=== PATIENT | female | born 1965 | race Caucasian/White ===

== ENCOUNTER → 2018-03-28 | Day surgery (SDC) | payer BC ==
[~2018-03-28] MED LIST: Lactated Ringers 1,000 ML IV SCH; Propofol 200 MG/20 ML SDV IV ONE
--- NOTE | 2018-03-31 11:02 | OR ---
DATE OF OPERATION: 03/28/2018 PREOPERATIVE DIAGNOSIS: SCREENING COLONOSCOPY. POSTOPERATIVE DIAGNOSIS: SCREENING COLONOSCOPY. SURGEON: Flash Monk MD PROCEDURE: FULL-LENGTH COLONOSCOPY. ANESTHESIA: LEATHER LACER due to morbid obesity. COMPLICATIONS: None. SPECIMEN: None. FINDINGS: Normal full-length colonoscopy. RECOMMENDATIONS: Follow up colonoscopy every 10 years. INDICATIONS: The patient was in to see her primary provider. She is at the age for a screening colonoscopy. DESCRIPTION OF PROCEDURE: The patient was prepped and draped, placed in the left lateral decubitus position. A lubricated Olympus colonoscope was inserted and was easily advanced to the cecum. We were able to directly visualize the ileocecal valve and the appendiceal orifice. The bowel prep was marginal. Most of the stool present could be irrigated and suctioned, very few areas were unable to be. It was possible some smaller lesions may have been missed. Due to this, upon withdrawal throughout the entire length of the colon, I could find no signs of any polyps, masses, ulcerations, or bleeding sites. No vascular abnormalities or signs of colitis. There were no diverticula. The rectal vault was unremarkable. Retroflexion showed no perianal lesions. Air was then suctioned. Scope removed without complication. PABLO/EVELIN /[id number]
== END ==
LOC: CC.SDS 11:59
PROVIDERS: ATTEND Family Medicine
DX: Z12.11 Encounter for screening for malignant neoplasm of colon (principal); E66.01 Morbid (severe) obesity due to excess calories; E03.9 Hypothyroidism, unspecified; E78.00 Pure hypercholesterolemia, unspecified; E55.9 Vitamin D deficiency, unspecified; F32.9 Major depressive disorder, single episode, unspecified; F41.9 Anxiety disorder, unspecified; Z87.891 Personal history of nicotine dependence; Z79.890 Hormone replacement therapy; Z79.899 Other long term (current) drug therapy; Z88.2 Allergy status to sulfonamides
CPT/HCPCS: 45378; J2704; J7120

== ENCOUNTER 2018-03-30 20:13 | Emergency (ER) | payer BC ==
[2018-03-30 20:47] LABS: CHLORIDE,CL 103 mEq/L (98-106); SODIUM,NA 140 mEq/L (136-145)
--- NOTE | 2018-03-30 21:00 | EDM.PDOC ---
ED HPI GENERAL MEDICAL PROBLEM - General Chief Complaint: Chest Pain Stated Complaint: Palpatations Time Seen by Provider: 03/30/18 20:13 Source of Information: Reports: Patient History Limitations: Reports: No Limitations - History of Present Illness INITIAL COMMENTS - FREE TEXT/NARRATIVE: This patient is a 52 year old female that presents to the ER. Patient reports that she was at a [employer] this evening and was feeling a little anxious. Patient reports she felt like her BP was rising due to being anxious. She reports that then she looked down at her fitbit and noticed her HR was going up. So, she got more nervous and anxiety. The patient report then before she knew it, she was upset, and her heart was racing out of her chest and she got short of breath. The patient arrived at the nurses station, appearing anxious and upset. The patient also reports she has been sick with a cough and congestion and seen in the clinic yesterday. She reports having a negative influenza test done. She reported subjective "fever of 99" for the past 3 days. Patient denies hay, dizziness, n, v, d, rash, abd pain, urinary/bowel changes. Patient alert and oriented. Onset: Today, Gradual Onset Date: 03/30/18 Onset Time: 19:30 Location: Reports: Chest Severity: Mild Improves with: Reports: None Worsens with: Reports: Other (Anxious) Associated Symptoms: Reports: Shortness of Breath. Denies: Confusion, Chest Pain, Cough, cough w sputum, Diaphoresis, Fever/Chills, Headaches, Loss of Appetite, Malaise, Nausea/Vomiting, Rash, Seizure, Syncope, Weakness - Related Data Allergies Allergy/AdvReac Type Severity Reaction Status Date / Time Sulfa (Sulfonamide Allergy Rash Verified 03/30/18 20:14 Antibiotics) Home Meds: Home Meds Cetirizine HCl [Zyrtec] 10 mg PO DAILY 03/25/18 [History] Cholecalciferol (Vitamin D3) [Vitamin D3] 1,000 units PO DAILY 03/25/18 [History ] FLUoxetine HCl [Fluoxetine HCl] 40 mg PO DAILY 03/25/18 [History] Levothyroxine Sodium [Synthroid] 175 mcg PO DAILY 03/25/18 [History] Multivitamin [Daily Multiple Vitamin] 1 tab PO DAILY 03/25/18 [History] Simvastatin 10 mg PO DAILY 03/25/18 [History] Vitamin B6-pyridOXINE 100 mg PO DAILY 03/25/18 [History] rOPINIRole [Requip] 0.25 mg PO BEDTIME 03/25/18 [History] ED ROS GENERAL - Review of Systems Review Of Systems: See Below Constitutional: Reports: No Symptoms HEENT: Reports: Rhinitis, Sinus Problem Respiratory: Reports: Shortness of Breath, Cough, Sputum Cardiovascular: Reports: Palpitations Endocrine: Reports: No Symptoms GI/Abdominal: Reports: No Symptoms : Reports: No Symptoms Musculoskeletal: Reports: No Symptoms Skin: Reports: No Symptoms Neurological: Reports: No Symptoms Psychiatric: Reports: Anxiety Hematologic/Lymphatic: Reports: No Symptoms Immunologic: Reports: No Symptoms ED EXAM, GENERAL - Physical Exam Exam: See Below Exam Limited By: No Limitations General Appearance: Alert, WD/WN, No Apparent Distress, Anxious Eye Exam: Bilateral Eye: Normal Inspection, PERRL Ears: Normal External Exam, Normal Canal, Hearing Grossly Normal, Normal TMs Ear Exam: Bilateral Ear: Auricle Normal, Canal Normal, TM normal Nose: Normal Inspection, Normal Mucosa, No Blood Throat/Mouth: Normal Inspection, Normal Lips, Normal Teeth, Normal Gums, Normal Oropharynx, Normal Voice, No Airway Compromise Head: Atraumatic, Normocephalic Neck: Normal Inspection, Supple, Non-Tender, Full Range of Motion Respiratory/Chest: No Respiratory Distress, Lungs Clear, Normal Breath Sounds, No Accessory Muscle Use, Chest Non-Tender Cardiovascular: Normal Peripheral Pulses, Regular Rate, Rhythm (96 on exam), No Edema, No Gallop, No JVD, No Murmur, No Rub Peripheral Pulses: 2+: Radial (L), Radial (R), Posterior Tibial (L), Posterior Tibial (R), Dorsalis Pedis (L), Dorsalis Pedis (R) GI/Abdominal: Normal Bowel Sounds, Soft, Non-Tender, No Organomegaly, No Distention, No Abnormal Bruit, No Mass, Pelvis Stable Back Exam: Normal Inspection, Full Range of Motion Extremities: Normal Inspection, Normal Range of Motion, Non-Tender, No Pedal Edema, Normal Capillary Refill Neurological: Alert, Oriented, Normal Cognition, Normal Gait, No Motor/Sensory Deficits Psychiatric: Anxious Skin Exam: Warm, Dry, Intact, Normal Color, No Rash Lymphatic: No Adenopathy EKG INTERPRETATION EKG Date: 03/30/18 Time: 20:05 Rhythm: NSR Rate (Beats/Min): 94 [place]: Normal P-Wave: Present QRS: Normal ST-T: Normal QT: Normal Comparison: NA - No Prior EKG Course - Vital Signs Last Recorded V/S: Last Vital Signs Temp 99.1 F 03/30/18 20:14 Pulse 105 H 03/30/18 20:14 Resp 20 03/30/18 20:14 BP 144/77 H 03/30/18 20:14 Pulse Ox 95 03/30/18 20:14 - Orders/Labs/Meds Orders: Active Orders 24 hr Category Date Time Status Chest 2V [CR] Stat Exams 03/30/18 20:19 Taken TROPONIN I [CHEM] Routine Lab 03/30/18 22:45 Ordered Labs: Laboratory Tests 03/30/18 03/30/18 Range/Units 20:20 20:20 WBC 10.9 H (5.0-10.0) 10^3/uL RBC 4.50 (4.00-5.50) 10^6/uL Hgb 14.4 (12.0-16.0) g/dL Hct 42.0 (37.0-47.0) % MCV 93.3 (82.0-94.0) fL MCH 32.0 (27.0-32.0) pg MCHC 34.3 (33.0-38.0) g/dL RDW Coeff of Avis 12.5 (11.0-15.0) % Plt Count 275 (150-400) 10^3/uL Neut % (Auto) 58.3 (35-85) % Lymph % (Auto) 29.8 (10-55) % [place] % (Auto) 7.8 (0-16) % Eos % (Auto) 3.8 (0-5) % Baso % (Auto) 0.3 (0-3) % Neut # (Auto) 6.35 (1.80-7.00) 10^3/uL Lymph # (Auto) 3.25 (1.00-4.80) 10^3/uL [place] # (Auto) 0.85 H (0.00-0.80) 10^3/uL Eos # (Auto) 0.41 (0.00-0.45) 10^3/uL Baso # (Auto) 0.03 10^3/uL Sodium 140 (136-145) mEq/L Potassium 3.6 (3.5-5.0) mEq/L Chloride 103 (98-106) mEq/L Carbon Dioxide 27 (21-32) mmol/L BUN 15 (7-18) mg/dL Creatinine 0.8 (0.6-1.0) mg/dL Est Cr Clr Drug Dosing 78.76 mL/min Estimated GFR (MDRD) > 60 (>=60) mL/min Glucose 101 H (75-99) mg/dL Calcium 8.9 (8.4-10.1) mg/dL Total Bilirubin 0.3 (0.0-1.0) mg/dL AST 26 (15-37) U/L ALT 45 (12-78) U/L Alkaline Phosphatase 103 (46-116) U/L Creatine Kinase 217 H (21-215) U/L Troponin I < 0.017 (0.00-0.06) ng/mL Total Protein 7.7 (6.4-8.2) g/dL Albumin 3.3 L (3.4-5.0) g/dL TSH, Ultra Sensitive 2.04 (0.36-5.60) uIU/mL - Radiology Interpretation Free Text/Narrative:: CXR: no infiltrates, no pulmonary edema, no cardiomegaly. - Re-Assessments/Exams Free Text/Narrative Re-Assessment/Exam: 03/30/18 21:07 Patient reports once she arrived in the ER and we started talking to her, she calmed down and was able to relax. She said her shortness of breath and palpitations resolved. Departure - Departure Time of Disposition: 23:00 Disposition: Home, Self-Care 01 Condition: Good Clinical Impression: Anxiety, Palpitations Instructions: Panic Attack, [id number], Palpitations, [id number] Forms: ED Department Discharge Additional Instructions: Followup with your primary care provider in the next couple of days for a recheck Reduce stress and anxiety Return to the ER for worsening of condition or any emergent concerns Continue Cefdinir Do not use cough syrups or over the counter medications for colds that may increase blood pressure and heart rate - My Orders Last 24 Hours: My Active Orders 03/30/18 20:19 Chest 2V [CR] Stat 03/30/18 22:45 TROPONIN I [CHEM] Routine - Assessment/Plan Last 24 Hours: My Active Orders 03/30/18 20:19 Chest 2V [CR] Stat 03/30/18 22:45 TROPONIN I [CHEM] Routine Plan: PLEASE SEE RN NOTE FOR PFSH.
== END 2018-03-30 23:09 | disposition home or self-care (01) ==
LOC: CC.ED 20:13
DX: F41.9 Anxiety disorder, unspecified (principal); Z79.899 Other long term (current) drug therapy; Z88.2 Allergy status to sulfonamides
CPT/HCPCS: 36415; 71046; 80053; 82550; 84443; 84484; 85025; 93005; 99285